=== PATIENT | female | born 1975 | race Hispanic/Latino ===

== ENCOUNTER 2017-12-14 10:29 | Emergency (ER) | payer OTHER ==
[2017-12-14] MEDS ORDERED: KETOROLAC TROMETHAMINE 60 MG/2 ML VIAL ONE (11:09)
== END 2017-12-14 12:38 | disposition home or self-care (01) ==
LOC: EDH 10:29
DX: S43.82XA Sprain of other specified parts of left shoulder girdle, initial encounter (principal); S13.4XXA Sprain of ligaments of cervical spine, initial encounter; V49.49XA Driver injured in collision with other motor vehicles in traffic accident, initial encounter; Y93.89 Activity, other specified; Y92.89 Other specified places as the place of occurrence of the external cause; Y99.8 Other external cause status
CPT/HCPCS: 72040; 73030; 81025; 96372; 99285; J1885

== ENCOUNTER 2019-04-16 18:03 | Emergency (ER) | payer OTHER | END 2019-04-16 19:03 | disposition home or self-care (01) | LOC: EDH 18:03 | DX: K08.89 Other specified disorders of teeth and supporting structures (principal) | CPT/HCPCS: 99281 ==

== ENCOUNTER 2024-10-31 20:00 | Inpatient (IN) | payer SELFPAY ==
[~2024-10-31] VITALS: Ht 154.9 cm; Wt 85.3 kg
--- NOTE | 2024-10-31 20:43 | ERN ---
ED Note History of Present Illness Stated Complaint: ABD PAIN, HEADACHE, FAST HEART BEAT Chief Complaint: Abdominal Pain Time Seen by MD: 20:37 Time Seen by Midlevel: 21:15 Dictation: Ms. Johnson 49-year-old female with history of uterine fibroids/menorrhagia who presented to the emergency department this evening for evaluation of abdominal pain. She states that she woke this morning with left lower quadrant abdominal pain radiating the left flank/low back/LLE and accompanied by nausea, dizziness, headache, and chills. She states throughout the day symptoms worsened; she is fatigued with general weakness, and feels lightheaded. She states she has been suffering from menorrhagia and is currently on her menses. She denies having f ever, shortness of breath, cough, chest pain, vomiting, hematemesis, melena, hematochezia, hematuria, or painful urination PCP: NONE [facility] IDENTITY MANAGEMENT CONSULTANT: NONE Allergies: Coded Allergies: No Known Drug Allergies (Unverified Allergy, Unknown, 04/16/19) Emergency Care GENERAL ACCOUNTING MANAGER: None Past Medical History Past Medical History: Other (UTERINE FIBROIDS, MENORRHAGIA) PSYCH History: no pertinent psych hx Social History: Negative RN Note Reviewed/Agreed w/PFSH: Yes Review of System Dictation REVIEW OF SYSTEMS: CONSTITUTIONAL: Patient denies fevers, sweats and weight changes. Reports chills EYES: Patient denies any visual symptoms. EARS, NOSE, AND THROAT: No difficulties with hearing. No symptoms of rhinitis or sore throat. CARDIOVASCULAR: Patient denies chest pains, palpitations, orthopnea and paroxysmal nocturnal dyspnea. RESPIRATORY: No dyspnea on exertion, no wheezing or cough. GI: No vomiting, diarrhea, constipation, hematochezia or melena. Reports left lower quadrant abdominal pain radiating to the low back. Reports nausea : No urinary hesitancy or dribbling. No nocturia or urinary frequency. No abnormal urethral discharge. Reports menorrhagia. States has history of uterine fibroids. MUSCULOSKELETAL: No myalgias or arthralgias. NEUROLOGIC: No chronic headaches, no seizures. Patient denies numbness, tingling or weakness. Reports acute headache and dizziness. PSYCHIATRIC: Patient denies problems with mood disturbance. No problems with anxiety. ENDOCRINE: No excessive urination or excessive thirst. DERMATOLOGIC: Patient denies any rashes or skin changes. Initial Vital Sign VS Vital Signs Date Time Temp Pulse Resp B/P (MAP) Pulse Ox O2 Delivery O2 Flow Rate FiO2 10/31/24 20:40 99.0 84 20 160/58 97 Room Air Physical Exam Dictation Vital signs: Reviewed. Afebrile Constitutional: No acute distress. Non-toxic appearing. Pleasant Head/Face: Normocephalic, atraumatic. Eyes: Periorbital areas with no swelling, redness, or edema. Lids and lashes are normal. Conjunctival injection is absent. Sclera anicteric. Pupils equal, round, reactive to light. ENT: Pinnas intact and no signs of trauma or erythema. Ear canals clear and no discharge. TMs no erythema. No nasal discharge or bleeding noted. Oropharynx with no exudate, redness, swelling, masses, exudates, or evidence of obstruction. Uvula midline. Mucous membranes moist. Neck: Trachea midline, no masses palpated, and no cervical lymphadenopathy. No swelling. Supple, full range of motion. Chest/Axilla: No tenderness, no crepitus, no paradoxical movement, no retractions. Cardiovascular: Regular rate, regular rhythm, no murmur, no gallops. Symmetric pulses. No peripheral edema. Respiratory: Respirations even and unlabored. Lung sounds clear; no wheezes, rales or rhonchi. Room air SpO2 98% Gastrointestinal: Obese No distention is appreciated. Bowel sounds are normal. No mass or organomegaly . There tenderness RLQ. No rebound. No rigidity. No voluntary or involuntary guarding. No Russ's sign. : + left CVA tenderness. On menses. Neurological: Normal speech, gross motor function intact, gross sensory function intact. No focal weakness/Paresthesia. Musculoskeletal/Extremities: All extremities have full range of motion, no pain or tenderness on palpation. Symmetric pulses. Integumentary: Intact. Skin is pale, warm and dry. Cap refill less than 2 seconds. Results (Laboratory/Radiology) Laboratory/Radiology Laboratory Tests Test 10/31/24 20:51 10/31/24 21:30 Urine Color COLORLESS (YELLOW) Urine Appearance CLEAR (CLEAR) Urine pH 6.5 (5.0-8.0) Urine Specific [place] 1.006 (1.001-1.031) Urine Protein NEGATIVE mg/dL (NEGATIVE) Urine Glucose (UA) NEGATIVE mg/dL (NEGATIVE) Urine Ketones NEGATIVE mg/dL (NEGATIVE) Urine Occult Blood SMALL (NEGATIVE) H Urine Nitrate NEGATIVE (NEGATIVE) Urine Bilirubin NEGATIVE mg/dL (NEGATIVE) Urine Urobilinogen 0.2 mg/dL (0.2-1.0) Urine Leukocyte Esterase 250 Todd/uL (NEGATIVE) H Urine RBC 2-5 /HPF (0-1) H Urine WBC 6-10 /HPF (0-1) H Urine Squamous Epithelial Cells RARE /HPF (0-2) Urine Bacteria None /HPF (None Seen) White Blood Count 7.5 K/uL (4.8-10.8) Red Blood Count 2.58 MIL/uL (4.00-5.50) L Hemoglobin 7.1 g/dL (12.0-16.0) L Hematocrit 24.1 % (36-48) L Mean Corpuscular Volume 93.4 fL (79-99) Mean Corpuscular Hemoglobin 27.5 pg (27.0-33.0) Mean Corpuscular Hemoglobin Concent 29.5 g/dL (32.0-36.0) L Red Cell Distribution Width 20.8 % (11.0-15.5) H Platelet Count 413 K/uL (130-400) H Mean Platelet Volume 9.4 fL (7.5-10.5) Immature Granulocyte % (Auto) 0.3 % (0-1) Neutrophils (%) (Auto) 59.1 % (40.0-77.0) Lymphocytes (%) (Auto) 30.4 % (21.0-51.0) Monocytes (%) (Auto) 7.2 % (3.0-13.0) Eosinophils (%) (Auto) 2.3 % (0.0-8.0) Basophils (%) (Auto) 0.7 % (0.0-5.0) Neutrophils # (Auto) 4.5 K/uL (1.8-7.7) Lymphocytes # (Auto) 2.3 K/uL (1.0-4.8) Monocytes # (Auto) 0.5 K/uL (0.1-1.0) Eosinophils # (Auto) 0.17 K/uL (0.00-0.70) Basophils # (Auto) 0.05 K/uL (0.00-0.20) Absolute Immature Granulocyte (auto 0.02 K/uL (0-1) Nucleated Red Blood Cells 0.0 % (0.0-0.19) Red Blood Cell Morphology See comments Sodium Level 138 mmol/L (136-145) Potassium Level 3.9 mmol/L (3.5-5.1) Chloride Level 102 mmol/L (101-111) Carbon Dioxide Level 30 mmol/L (21-32) Blood Urea Nitrogen 18 mg/dL (7-18) Creatinine 0.8 mg/dL (0.5-1.0) Glomerular Filtration Rate Calc 89 mL/min (>90) Random Glucose 117 mg/dL (70-105) H Total Calcium 8.7 mg/dL (8.5-10.1) Lipase 83 U/L (16-77) H Labs Reviewed?: Yes ED Course ED Course Orders Procedure Category Date Status Time Vital Signs Per CPOE 10/31/24 Transmitted Routine 20:46 Saline Lock Iv CPOE 10/31/24 Transmitted 20:46 Cbc With Differential LAB 10/31/24 Complete 20:46 Lipase LAB 10/31/24 Complete 20:46 Urinalysis Profile LAB 10/31/24 Complete 20:46 Basic Metabolic Panel LAB 10/31/24 Complete 20:46 Culture Urine ROBER 10/31/24 In Process 21:02 Ceftriaxone 1g Vial PHA 10/31/24 Complete (Rocephine 1g Inj) 21:30 Ondansetron 4mg Inj PHA 10/31/24 Complete (Zofran 4mg Inj) 21:30 Hydromorphone 0.5mg PHA 10/31/24 Complete Syg (Dilaudid 0.5mg 21:30 Ct Abdomen/Pelvis W/O CT 10/31/24 Taken Contrast 21:49 Type And Screen BBK 10/31/24 Logged 22:12 Current Medications Medications (Trade) Dose Ordered Sig/Gloria Route PRN Reason Start Time Stop Time Status Last Admin Dose Admin Ceftriaxone Sodium (ROCEphine 1G INJ) 1 gm ONCE ONCE IVPB 10/31/24 21:30 10/31/24 21:31 DC Hydromorphone HCl (DiLAUDid 0.5MG INJ) 0.5 mg ONCE ONCE IVP 10/31/24 21:30 10/31/24 21:31 DC Ondansetron HCl (zoFRAN 4MG INJ) 4 mg ONCE ONCE IVP 10/31/24 21:30 10/31/24 21:31 DC Vital Signs Date Time Temp Pulse Resp B/P (MAP) Pulse Ox O2 Delivery O2 Flow Rate FiO2 10/31/24 20:40 99.0 84 20 160/58 97 Room Air VITAL SIGNS REMAINED STABLE; AFEBRILE WITH ROOM AIR SPO2 97%. SHE HAS RIGHT LOWER QUADRANT PAIN WELL LEFT FLANK PAIN WITH POSITIVE LEFT CVA TENDERNESS. SHE HAS NAUSEA WITHOUT EMESIS. LABORATORY FINDINGS NOTED BELOW. NO ELEVATION OF WBCS. H/H 7.1/24.1, PLATELET COUNT 4 ONE THREE, LIPASE 83, AND GLUCOSE 117. UA IS POSITIVE FOR LEUKOCYTE ESTERASE, BLOOD, AND UWBC 6-10. UCX PENDING. CT ABDOMEN/PELVIS HAS BEEN ORDERED. FINDINGS WERE DISCUSSED WITH HOSPITALIST LEIA JOHNSON WHO ACCEPTS PATIENT FOR GROUP. Medical Decision Making MDM MDM: DIFFERENTIAL DIAGNOSIS: KIDNEY STONE, UTI, DIVERTICULITIS, SYMPTOMATIC ANEMIA RATIONALE: TESTS CONSIDERED AND ORDERED SECONDARY TO SHARED DECISION MAKING INCLUDE: LABS, ECG AND RADIOLOGY PREVIOUS OUTSIDE RECORDS REVIEWED: OLD ER VISITS. RISK OF COMPLICATION AND/OR MORBIDITY OR MORTALITY OF PATIENT MANAGEMENT: NONE MEDICATIONS-PER MEDICATION RECONCILIATION NEED FOR HOSPITALIZATION: PATIENT DOES MEET CRITERIA FOR HOSPITALIZATION. NEED FOR EMERGENCY MAJOR/MINOR SURGERY: NO THERE ARE NO SOCIAL CONCERNS WITH THIS PATIENT. PRESCRIPTION DRUG MANAGEMENT PRESCRIPTIONS WILL INCLUDE SYMPTOMATIC CARE PATIENT'S PRIOR EXTERNAL MEDICAL RECORDS FROM OTHER ER VISITS WERE REVIEWED BY ME INDICATED. PRIOR TESTING AND RESULTS FROM PREVIOUS VISITS WERE REVIEWED. PRIOR TESTS WERE TAKEN INTO ACCOUNT WITH MEDICAL DECISION MAKING AND RESOURCE UTILIZATION, INDEPENDENT HISTORIAN/HISTORIANS WERE USED TO OBTAIN COMPLETE MEDICAL HISTORY. I INDEPENDENTLY INTERPRETED THE TEST THAT WERE PERFORMED, RESULTS WERE REVIEWED BY ME AND CONSIDERED FINDINGS ON RADIOLOGY IF ORDERED. MEDICAL MANAGEMENT AND EXAMINATION INTERPRETATION DISCUSSIONS WERE HAD BY ME WITH OTHER QUALIFIED HEALTHCARE PROFESSIONALS INDICATED FOR THE PATIENT'S CARE. DX & DISP Disposition: Observation Departure Impression: Primary Impression: UTI (urinary tract infection) Additional Impressions: Symptomatic anemia, Menorrhagia Condition: Stable Assign Patient to: Dr. Garrett Hackett Referrals: SELF,REFERRAL (PCP) CESILIA BUSH NP Oct 31, 2024 20:43
[2024-10-31 21:00] LABS: APPEARANCE,URINE CLEAR (CLEAR); BILIRUBIN,URINE NEGATIVE (NEGATIVE); COLOR,URINE COLORLESS (YELLOW); GLUCOSE, URINE (UA) NEGATIVE (NEGATIVE); KETONES,URINE NEGATIVE (NEGATIVE); LEUKOCYTE ESTERASE ,URINE 250 Leu/uL (NEGATIVE); NITRATE,URINE NEGATIVE (NEGATIVE); OCCULT BLOOD,URINE SMALL (NEGATIVE); PH,URINE 6.5 (5.0-8.0); PROTEIN,URINE NEGATIVE (NEGATIVE); UROBILINOGEN,URINE 0.2 mg/dL (0.2-1.0)
[2024-10-31 21:01] LABS: ADD UA MICROSCOPIC YES
[2024-10-31 21:03] LABS: SQUAMOUS EPITHELIAL CELL,UR RARE /HPF (0-2)
[2024-10-31] MEDS: hydroMORPHone 0.5 MG SYG (0.5MG/0.5ML) IVP ONE (21:30)
[2024-10-31 21:44] LABS: BASOPHILS # (AUTO) 0.05 K/uL (0.00-0.20); BASOPHILS % (AUTO) 0.7 % (0.0-5.0); EOSINOPHILS # (AUTO) 0.17 K/uL (0.00-0.70); EOSINOPHILS % (AUTO) 2.3 % (0.0-8.0); HEMATOCRIT 24.1 % (36-48); IMMATURE GRANULOCYTE ABSOLUTE 0.02 K/uL (0-1); LYMPHOCYTES # (AUTO) 2.3 K/uL (1.0-4.8); LYMPHOCYTES % (AUTO) 30.4 % (21.0-51.0); MEAN CORPUSCULAR HEMOGLOBIN 27.5 pg (27.0-33.0); MEAN CORPUSCULAR HGB CONC 29.5 g/dL (32.0-36.0); MEAN CORPUSCULAR VOLUME 93.4 fL (79-99); MONOCYTES # (AUTO) 0.5 K/uL (0.1-1.0); MONOCYTES % (AUTO) 7.2 % (3.0-13.0); NEUTROPHILS # (AUTO) 4.5 K/uL (1.8-7.7); NEUTROPHILS % (AUTO) 59.1 % (40.0-77.0); PLATELET COUNT (AUTO) 413 K/uL (130-400); RED BLOOD CELL COUNT(AUTO) 2.58 MIL/uL (4.00-5.50); RED CELL DISTRIBUTION WIDTH 20.8 % (11.0-15.5); WHITE BLOOD COUNT (AUTO) 7.5 K/uL (4.8-10.8)
[2024-10-31 21:56] LABS: CREATININE 0.8 mg/dL (0.5-1.0); POTASSIUM 3.9 mmol/L (3.5-5.1)
--- NOTE | 2024-10-31 22:21 | HP ---
History of Present Illness Reason for Visit: abdominal pain History of Present Illness Ms. Lang is a 49-year-old female that was seen and examined today on 10/31/2024. Patient is a good historian of personal health Patient states that she came to the emergency department with a chief complaint of abdominal pain. Onset was Thursday10/29/2024. Location is to left lower quadrant. Pain radiates to left lower back. Duration is on and off. Character is described as cramping. Episodes of pain lasts about 1 hour. There was no alleviating factors. There was no aggravating factors. Patient reports associated nausea without any vomiting. Patient also states that she has been having almost daily vaginal bleeding for the last one year. Patient states she has been diagnosed with fibroids and needs to see an OBGYN but she does not have insurance. Today in the emergency department hemoglobin 7.1, hematocrit 24.1, CT of abdomen and pelvis has been performed but results are pending at time of admission. Urinalysis is positive for leukocyte esterase and WBCs 6-10 per high-powered microscopy field. Emergency room physician recommended that patient be admitted with a diagnosis of anemia. Past Medical History ADDITIONAL PAST MEDICAL HISTORY: [Denies] SOCIAL HISTORY: [Negative for smoking, alcohol use, drug use. Patient lives with the mother Noemy Perea. Patient is independent of all her ADLs. Patient denies difficulty paying her bills. Patient has poor access to health care due to lack of health insurance. Patient is currently unemployed. SURGICAL HISTORY: [BTL] Review of Systems General: No Fever, No Chills, No Night Sweats, No Fatigue, No Malaise, No Appetite, No Other HEENT: No Head Aches, No Visual Changes, No Eye Pain, No Ear Pain, No Dysphasia, No Sinus Congestion, No Post Nasal Drip, No Sore Throat, No Other Pulmonary: No Dyspnea, No Cough, No Pleuritic Chest Pain, No Other Cardiovascular: No: Chest Pain, Palpitations, Orthopnea, Paroxysmal Noc. Dyspnea, Edema, Lt Headedness, Other Gastrointestinal: Nausea, Abdominal Pain; No: Vomiting, Diarrhea, Constipation, Melena, Hematochezia, Other Genitourinary: No Dysuria, No Frequency, No Incontinence, No Hematuria, No Retention, No Other Musculoskeletal: No: other, neck pain, shoulder pain, arm pain, back pain, hand pain, leg pain, foot pain Skin: No Urticaria, No Rash, No Other Neurological: No: Weakness, Numbness, Incoordination, Change in speech, Confusion, Seizures, Other Allergies: Coded Allergies: No Known Drug Allergies (Unverified Allergy, Unknown, 04/16/19) Exam Vital Signs Vital Signs Date Time Temp Pulse Resp B/P (MAP) Pulse Ox O2 Delivery O2 Flow Rate FiO2 10/31/24 20:40 99.0 84 20 160/58 97 Room Air General Appearance: Alert, Oriented X3, Cooperative, No acute distress HEENT: Atraumatic, PERRLA, EOMI Respiratory: Clear to auscultation, Normal air movement, NL respiratory effort Cardiovascular: Regular rate, Regular rhythm, Normal S1, Normal S2 Abdominal: Normal bowel sounds, Soft, No tenderness Extremities: No edema Skin: No significant lesion Neuro: Normal speech, Strength at 5/5 X4 ext, Sensation intact, Cranial nerves 3-12 NL Psych/Mental Status: Mental status NL, Mood NL, Thoughts/Content NL Assessment/Plan ASSESSMENT: [ Normocytic anemia, POA Urinary tract infection, POA Abdominal pain, POA Uterine fibroids, POA Menometrorrhagia, POA] PLAN: [ Admit patient to medical floor as inpatient status. Check iron panel, follow up with the results Check serum ferritin, follow up with the results Check LDH, reticulocyte count, peripheral smear, follow up with the results Monitor labs Transfuse packed red blood cells for hemoglobin less than 7 mg/dL Check stool for occult blood, follow up with the results Empiric antibiotic therapy with Rocephin Check urine culture, follow up with the results Follow up with results of CT abdomen and pelvis, consider consulting General surgery Service if indicated. Have patient follow up outpatient with OBGYN of choice as the service not available at this facility. Patient has a longstanding history of fibroids. GI prophylaxis, famotidine DVT prophylaxis, Nickolas's and SCDs avoid anticoagulation at this time due to anemia. ADVANCED CARE PLANNING 1. Which of the following were discussed? Hospice Care - Yes Therapeutic options - Yes Advance Directives - Yes-patient states she does not have any advance directives in place at this time however her mother can make decisions for her if she becomes unable. Other discussions - patient wishes to remain a full code at this time 2. Discussed with who? Patient 3. Voluntary nature of this service was explained to the patient? Yes 4. Amount of time spent - ___ 16 minutes ____ 5. Reviewed by Physician? (if this service was performed by NPP) Yes This document was generated in part using voice recognition software, occasional wrong word or sound alike substitutions may have occurred due to the inherent limitations of voice recognition software. Read the chart carefully and recognize using context, where the substitutions have occurred. Although every effort was made to edit the content, home restoration service supervisor and typing errors may occur ATTESTATION BY PHYSICIAN I have seen and examined the patient. I reviewed the documentation, medical decision making, and treatment plan as noted by the mid-level provider above. I agree with the findings and plan of care. KELSI LANG [facility] Oct 31, 2024 22:21
--- NOTE | 2024-10-31 22:33 | HMCIMG ---
CT ABDOMEN/PELVIS W/O CONTRAST HISTORY: Abdominal pain COMPARISON: None TECHNIQUE: Multiple sequential axial images of the abdomen and pelvis were obtained from the dome of the diaphragm through symphysis pubis. Patient was not given contrast through intravenous route. Oral contrast was not given. FINDINGS: No pleural effusion is seen bilaterally. There is no evidence of parenchymal disease or pulmonary nodule of the visualized lower lungs. Degenerative changes of the thoracolumbar spine are present. The heart is not enlarged. Liver measures 17 cm. Gallbladder is contracted. The liver, spleen, adrenal glands and pancreas are unremarkable. There is no evidence of hydronephrosis bilaterally. No evidence of renal stone is seen. Fecal material is seen in the colon. There are normal size retroperitoneal and mesenteric lymph nodes. No ascites is seen. No CT evidence of acute appendicitis is seen. Pelvic sidewalls are symmetric bilaterally. Uterus is enlarged. Bladder is well distended without wall thickening. IMPRESSION: 1. No acute findings. CT was performed with one or more following dose reduction techniques: automated exposure control, adjustment of the mA and kv according to patient's size, or use of a iterative reconstruction technique.
[2024-10-31 22:52] LABS: RETICULOCYTE % (AUTO) 6.83 % (0.42-2.23)
--- NOTE | 2024-10-31 23:04 | NUR ---
PT CARE ASSUMED AT THIS TIME
[2024-10-31] MEDS: cefTRIAXone 1G VIAL IVPB ONE (23:18)
[2024-10-31 23:21] LABS: % IRON SATURATION 2.9 % (22-44)
[2024-10-31] MEDS: cefTRIAXone 1G VIAL IVPB SCH (23:36)
[2024-10-31] MEDS: ondanSETRON 4MG INJ IVP ONE (23:38)
[2024-10-31] MEDS ORDERED: morPHINE 2 MG SYG IVP PRN (23:45)
[2024-11-01] VITALS (8 sets, daily range): BP systolic 107–160; BP diastolic 52–72; PULSE 61–83; RESP 17–21; TEMP 97.9–99.2; O2SAT 99–100
[2024-11-01] MEDS ORDERED: ondanSETRON 4MG INJ IV PRN
[2024-11-01] MEDS ORDERED: hydrALAZine 20MG/ML VIAL IV PRN
[2024-11-01] MEDS ORDERED: acetaMINOPHEN 325 MG TAB PO PRN
[2024-11-01] MEDS: acetaMINOPHEN 325 MG TAB PO PRN (00:19)
--- NOTE | 2024-11-01 01:43 | NUR ---
PROVIDER KELSI MADE AWARE OF ONSET OF S/S. ORDERS GIVEN AT THIS TIME. REPEAT BEDSIDE LABS TAKEN.
[2024-11-01 02:15] LABS: HEMATOCRIT 22.6 % (36-48)
--- NOTE | 2024-11-01 04:21 | NUR ---
MEDICAL SAFETY DIRECTOR PROVIDER PAGED AT THIS TIME. PENDING CALL BACK.
--- NOTE | 2024-11-01 04:32 | NUR ---
PROVIDER MADE AWARE OF CRITICAL LAB HEMOGLOBIN AT THIS TIME. ORDERS GIVEN.
--- NOTE | 2024-11-01 05:46 | NUR ---
REPORT GIVEN TO JOSE ANGEL ZAYAS AT THIS TIME
--- NOTE | 2024-11-01 05:47 | NUR ---
PER BLOOD BANK TECH BLOOD IS NOT READY AT THIS TIME. PENDING BLOOD TRANSFUSION. TECH FROM LAB WILL CALL RN WHEN BLOOD IS READY.
--- NOTE | 2024-11-01 07:23 | NUR ---
1 UNIT PRBC INITIATED. EDUCATED ON SIGNS AND SYMPTOMS OF BLOOD TRANSFUSION REACTION. VITALS STABLE. TOLERATED WELL.
[2024-11-01] MEDS: FAMOTIDINE 20MG TAB PO SCH (08:33)
[2024-11-01 11:55] LABS: BASOPHILS # (AUTO) 0.03 K/uL (0.00-0.20); BASOPHILS % (AUTO) 0.5 % (0.0-5.0); EOSINOPHILS # (AUTO) 0.08 K/uL (0.00-0.70); EOSINOPHILS % (AUTO) 1.2 % (0.0-8.0); HEMATOCRIT 26.4 % (36-48); IMMATURE GRANULOCYTE ABSOLUTE 0.03 K/uL (0-1); LYMPHOCYTES # (AUTO) 1.3 K/uL (1.0-4.8); LYMPHOCYTES % (AUTO) 19.7 % (21.0-51.0); MEAN CORPUSCULAR HEMOGLOBIN 27.5 pg (27.0-33.0); MEAN CORPUSCULAR HGB CONC 30.3 g/dL (32.0-36.0); MEAN CORPUSCULAR VOLUME 90.7 fL (79-99); MONOCYTES # (AUTO) 0.5 K/uL (0.1-1.0); MONOCYTES % (AUTO) 6.8 % (3.0-13.0); NEUTROPHILS # (AUTO) 4.7 K/uL (1.8-7.7); NEUTROPHILS % (AUTO) 71.3 % (40.0-77.0); PLATELET COUNT (AUTO) 357 K/uL (130-400); RED BLOOD CELL COUNT(AUTO) 2.91 MIL/uL (4.00-5.50); WHITE BLOOD COUNT (AUTO) 6.6 K/uL (4.8-10.8)
[2024-11-01 12:07] LABS: CREATININE 0.7 mg/dL (0.5-1.0); MAGNESIUM 2.1 mg/dL (1.80-2.40); PHOSPHORUS 3.4 mg/dL (2.5-4.9); POTASSIUM 4.1 mmol/L (3.5-5.1)
--- NOTE | 2024-11-01 15:31 | PN ---
[facility] PROGRESS NOTE Date of Service: Nov 01, 2024 Time of Service: 15:14 SUBJECTIVE: Ms. Lau, a 49-year-old female with no significant past medical history presented to the ER with the complaints of intermittent left lower quadrant abdominal pain associated with nausea since Thursday. Patient mentioned about experiencing almost daily vaginal bleeding, with passage of clots since the past year. Patient states that she has been diagnosed with fibroids and was recommended hysterectomy but was not able to proceed further due to lack of insurance. Initial labs hemoglobin 7.1, hematocrit 24.1, urinalysis positive for leukocyte esterase. 11/01/2024 Patient is seen and examined at the bedside. She complains of mild left lower quadrant pain and denies nausea, vomiting. No acute events last night. She has received 1 unit PRBCs earlier this morning. CT abdomen/pelvis r esulted in no acute findings. Labs hemoglobin improved from 7.1-8, iron 12, TIBC 410,% saturation 2.9. REVIEW OF SYSTEMS CONSTITUTIONAL: Denies fevers, chills, or night sweats. No unintentional weight loss reported. NEUROLOGICAL: Denies headache, amaurosis fugax, motor weakness, sensory deficit, vertigo/spinning sensation, gait abnormalities, or tremors. ENT: No hearing loss, otalgia, otorrhea, rhinitis, rhinorrhea, hoarseness, or sore throat. CARDIOVASCULAR: Denies any exertional angina, dyspnea on exertion, orthopnea, paroxysmal nocturnal dyspnea, palpitations, life-threatening arrhythmias, claudication. PULMONARY: Denies any shortness of breath, cough, phlegm/sputum, hemoptysis, pleuritic chest pain. SLEEP: Denies morning headaches, daytime somnolence or napping. Denies difficulty falling asleep, staying asleep, waking from sleep. Denies knowledge of snoring. GASTROINTESTINAL: Mild Left lower quadrant pain Denies any type of dysphagia to either liquids or solids. Denies nausea, vomiting, pyrosis, early satiety, abdominal pain, diarrhea, constipation, or changes in stool consistency or caliber. Denies coffee-ground emesis, hematemesis, hematochezia, or melanotic stools. GENITOURINARY: Denies frequency, urgency, nocturia, hematuria or incontinence (Storage/Irritative symptoms.) Low urinary stream, straining to void, urinary intermittency or hesitancy, splitting of the voiding stream, terminal dribbling. ENDOCRINOLOGIC: Denies polyuria, polydipsia, polyphagia or heat/cold intolerances. HEMATOLOGIC: Denies thrombophilia/previous clots, or coagulopathy/bleeding disorders. ONCOLOGIC: Denies personal history of malignancy. DERMATOLOGIC: Denies rashes or pruritus. PSYCHIATRIC: Denies any suicidal or homicidal ideation. Denies hallucinations. PHYSICAL EXAM GENERAL APPEARANCE: The patient is awake, alert, and oriented, in no acute cardiopulmonary distress. NEUROLOGICAL: Cranial nerves II-XII grossly intact. Motor is 5/5 in bilateral upper and lower extremities proximal to distal. No sensory deficits. HEENT: Face is symmetric. Pupils are equal and reactive. Extraocular movements are intact. NECK: Supple. No JVD. No thyromegaly. No submental, submandibular, pre- /postauricular, occipital or supraclavicular lymphadenopathy. CHEST: Normal chest expansion. No Telemetry. LUNGS: Absence of any rales, rhonchi or any wheezing. CARDIOVASCULAR: Regular. S1 and S2 normal. No appreciable rubs, murmurs or gallops. ABDOMEN: Mild Tenderness in left lower quadrant Soft, nontender, and nondistended. There is no rebound, voluntary guarding, or rigidity. : Deferred. No Thibodeaux. EXTREMITIES: Non-edematous and not cyanotic. No clubbing. Good capillary re fill. SKIN: No skin breakdown. Vital Signs (last 8hr) Date Time Temp Pulse Resp B/P (MAP) Pulse Ox O2 Delivery O2 Flow Rate FiO2 11/01/24 12:12 98.4 61 19 117/72 98 Room Air 11/01/24 08:41 100 Room Air* 0 21 11/01/24 08:16 98.1 75 19 123/63 100 Room Air LABS: Laboratory: Test 11/01/24 11:33 11/01/24 01:51 10/31/24 21:30 10/31/24 20:51 Range/Units White Blood Count 6.6 4.8-10.8 K/uL Red Blood Count 2.91 L 4.00-5.50 MIL/uL Hemoglobin 8.0 L 12.0-16.0 g/dL Hematocrit 26.4 L 36-48 % Mean Corpuscular Volume 90.7 79-99 fL Mean Corpuscular Hemoglobin 27.5 27.0-33.0 pg Mean Corpuscular Hemoglobin Concent 30.3 L 32.0-36.0 g/dL Red Cell Distribution Width 19.0 H 11.0-15.5 % Platelet Count 357 130-400 K/uL Mean Platelet Volume 9.5 7.5-10.5 fL Immature Granulocyte % (Auto) 0.5 0-1 % Neutrophils (%) (Auto) 71.3 40.0-77.0 % Lymphocytes (%) (Auto) 19.7 L 21.0-51.0 % Monocytes (%) (Auto) 6.8 3.0-13.0 % Eosinophils (%) (Auto) 1.2 0.0-8.0 % Basophils (%) (Auto) 0.5 0.0-5.0 % Neutrophils # (Auto) 4.7 1.8-7.7 K/uL Lymphocytes # (Auto) 1.3 1.0-4.8 K/uL Monocytes # (Auto) 0.5 0.1-1.0 K/uL Eosinophils # (Auto) 0.08 0.00-0.70 K/uL Basophils # (Auto) 0.03 0.00-0.20 K/uL Absolute Immature Granulocyte (auto 0.03 0-1 K/uL Nucleated Red Blood Cells 0.0 0.0-0.19 % Sodium Level 138 136-145 mmol/L Potassium Level 4.1 3.5-5.1 mmol/L Chloride Level 104 101-111 mmol/L Carbon Dioxide Level 28 21-32 mmol/L Blood Urea Nitrogen 13 7-18 mg/dL Creatinine 0.7 0.5-1.0 mg/dL Glomerular Filtration Rate Calc 105 >90 mL/min Random Glucose 116 H 70-105 mg/dL Total Calcium 8.4 L 8.5-10.1 mg/dL Phosphorus Level 3.4 2.5-4.9 mg/dL Magnesium Level 2.10 1.80-2.40 mg/dL Stool Occult Blood NEGATIVE NEGATIVE Red Blood Cell Morphology See comments Reticulocyte Count (auto) 6.15793 H 0.42-2.23 % Immature Reticulocyte Fraction 31.20 H 0.18-0.48 % Iron Level 12 L 50-170 mcg/dL Total Iron Binding Capacity 410 250-450 mcg/dL Percent Iron Saturation 2.9 L 22-44 % Lactate Dehydrogenase 149 81-234 U/L Lipase 83 H 16-77 U/L Urine Color COLORLESS YELLOW Urine Appearance CLEAR CLEAR Urine pH 6.5 5.0-8.0 Urine Specific [place] 1.006 1.001-1.031 Urine Protein NEGATIVE NEGATIVE mg/dL Urine Glucose (UA) NEGATIVE NEGATIVE mg/dL Urine Ketones NEGATIVE NEGATIVE mg/dL Urine Occult Blood SMALL H NEGATIVE Urine Nitrate NEGATIVE NEGATIVE Urine Bilirubin NEGATIVE NEGATIVE mg/dL Urine Urobilinogen 0.2 0.2-1.0 mg/dL Urine Leukocyte Esterase 250 H NEGATIVE Todd/uL Urine RBC 2-5 H 0-1 /HPF Urine WBC 6-10 H 0-1 /HPF Urine Squamous Epithelial Cells RARE 0-2 /HPF Urine Bacteria None None Seen /HPF Current Medications Medications (Trade) Dose Ordered Sig/Gloria Route PRN Reason Start Time Stop Time Status Last Admin Dose Admin Acetaminophen (TYLenol 325MG TAB) 650 mg Q4H PRN PO PAIN LEVEL 1 TO 3 11/01/24 00:30 12/01/24 00:29 11/01/24 06:19 650 MG Acetaminophen (TYLenol 325MG TAB) 650 mg Q6H PRN PO TEMPERATURE GREATER THAN 101.5 11/01/24 00:00 12/01/24 00:00 Ceftriaxone Sodium (ROCEphine 1G INJ) 1 gm Q24H IVPB 10/31/24 22:30 11/01/24 11:43 DC 10/31/24 23:36 1 GM Famotidine (Pepcid 20mg Tab) 20 mg DAILY PO 11/01/24 09:00 12/01/24 08:59 11/01/24 08:33 20 MG Hydralazine HCl (APRESOLine 20MG INJ) 10 mg Q6H PRN IV For:SBP above 160;DBP above 90 11/01/24 00:00 12/01/24 00:00 Morphine Sulfate (morPHINE 2MG SYG) 2 mg Q4H PRN IVP SEVERE PAIN (7-10) 10/31/24 23:45 11/07/24 23:44 Ondansetron HCl (zoFRAN 4MG INJ) 4 mg Q6H PRN IV NAUSEA/VOMITING 11/01/24 00:00 12/01/24 00:00 DIAGNOSTICS / RADIOLOGY: PROCEDURE: ABD PEL WO - CT ABDOMEN/PELVIS W/O CONTRAST CT ABDOMEN/PELVIS W/O CONTRAST HISTORY: Abdominal pain COMPARISON: None TECHNIQUE: Multiple sequential axial images of the abdomen and pelvis were obtained from the dome of the diaphragm through symphysis pubis. Patient was not given contrast through intravenous route. Oral contrast was not given. FINDINGS: No pleural effusion is seen bilaterally. There is no evidence of parenchymal disease or pulmonary nodule of the visualized lower lungs. Degenerative changes of the thoracolumbar spine are present. The heart is not enlarged. Liver measures 17 cm. Gallbladder is contracted. The liver, spleen, adrenal glands and pancreas are unremarkable. There is no evidence of hydronephrosis bilaterally. No evidence of renal stone is seen. Fecal material is seen in the colon. There are normal size retroperitoneal and mesenteric lymph nodes. No ascites is seen. No CT evidence of acute appendicitis is seen. Pelvic sidewalls are symmetric bilaterally. Uterus is enlarged. Bladder is well distended without wall thickening. IMPRESSION: 1. No acute findings. ASSESSMENT: Normocytic anemia, POA Iron deficiency, POA Urinary tract infection, POA Left lower quadrant abdominal pain, POA History of Uterine fibroids, POA Chronic Menometrorrhagia, POA] Obesity, POA PLAN: Normocytic anemia, POA and Iron deficiency, POA Hemoglobin after 1 unit PRBC transfusion is 8 We will add iron sulfate 325 mg p.o. daily Follow up on ferritin level results Follow up on peripheral smear results We will repeat H/H levels in the a.m. Stool occult blood test is negative Urinary tract infection, POA We will switch the IV antibiotic from ceftriaxone to Levaquin 750 mg Q 24 H as the patient had history of allergy to ceftriaxone, penicillin [hives, rash] Follow up on urine culture results History of Uterine fibroids, POA and Chronic Menometrorrhagia, POA] We will consult OBGYN for further evaluation We will order pelvic ultrasound Continue GI prophylaxis famotidine and DVT prophylaxis SCDs, not on any ant icoagulation due to anemia Follow up on case management and Social Service consult We will repeat the CBC, BMP levels in the morning. ATTESTATION BY PHYSICIAN I have seen and examined the patient. I reviewed the documentation, medical decision making, and treatment plan as noted by the resident above. I agree with the findings and plan of care. Addy Cotter MD, PRIYANKA MD Mar 4, 2025 15:31
[2024-11-01] MEDS: levoFLOXacin 750 MG/D5W 150ML BAG IV SCH (16:07)
--- NOTE | 2024-11-01 22:08 | HMCIMG ---
US PELVIC NON-OB COMP HISTORY: Vaginal bleeding COMPARISON: None TECHNIQUE: Transabdominal pelvic ultrasound study was performed. FINDINGS: The uterus measures 11 x 6.1 x 9 cm. The right ovary measures 1.9 x 1.5 x 1.6 cm. The left ovary measures 2.3 x 1.4 x 2 cm. Flow is seen in both ovaries. Endometrial thickness is 8 mm. Uterus is heterogeneous. There is right ovarian follicle measuring 14 mm. No free fluid is seen in the cul-de-sac. IMPRESSION: 1. No adnexal mass is seen. Heterogeneous uterus may be related to fibroid uterus.
[2024-11-02 03:31] VITALS: BP 105/51; PULSE 82; RESP 17; TEMP 97.8
[2024-11-02 05:49] LABS: BASOPHILS # (AUTO) 0.03 K/uL (0.00-0.20); BASOPHILS % (AUTO) 0.5 % (0.0-5.0); EOSINOPHILS # (AUTO) 0.16 K/uL (0.00-0.70); EOSINOPHILS % (AUTO) 2.4 % (0.0-8.0); HEMATOCRIT 25.5 % (36-48); IMMATURE GRANULOCYTE ABSOLUTE 0.02 K/uL (0-1); LYMPHOCYTES # (AUTO) 1.8 K/uL (1.0-4.8); LYMPHOCYTES % (AUTO) 26.8 % (21.0-51.0); MEAN CORPUSCULAR HEMOGLOBIN 27.5 pg (27.0-33.0); MEAN CORPUSCULAR HGB CONC 30.6 g/dL (32.0-36.0); MEAN CORPUSCULAR VOLUME 89.8 fL (79-99); MONOCYTES # (AUTO) 0.6 K/uL (0.1-1.0); MONOCYTES % (AUTO) 8.3 % (3.0-13.0); NEUTROPHILS # (AUTO) 4.1 K/uL (1.8-7.7); NEUTROPHILS % (AUTO) 61.7 % (40.0-77.0); PLATELET COUNT (AUTO) 336 K/uL (130-400); RED BLOOD CELL COUNT(AUTO) 2.84 MIL/uL (4.00-5.50); RED CELL DISTRIBUTION WIDTH 18.6 % (11.0-15.5); WHITE BLOOD COUNT (AUTO) 6.7 K/uL (4.8-10.8)
[2024-11-02 06:12] LABS: CREATININE 0.8 mg/dL (0.5-1.0); POTASSIUM 4.4 mmol/L (3.5-5.1)
[2024-11-02 08:17] LABS: ALANINE AMINOTRANSFERASE 24 U/L (12-78); ALBUMIN 2.9 g/dL (3.5-5.0); ASPARTATE AMINOTRANSFERASE 10 U/L (10-37); BILIRUBIN,DIRECT < 0.1 mg/dL (0.0-0.3); BILIRUBIN,TOTAL 0.2 mg/dL (0.2-1.0); TOTAL PROTEIN, SERUM 6.2 g/dL (6.0-8.3)
[2024-11-02 08:22] VITALS: BP 125/69; PULSE 83; RESP 20; TEMP 97.6
[2024-11-02] MEDS: FERROUS SULFATE 325 MG TABLET.DR PO SCH (09:54)
[2024-11-02 11:14] VITALS: BP 126/64; PULSE 86; RESP 18; TEMP 98.3
[2024-11-02] MEDS ORDERED: FERR-72 PO (14:31)
[2024-11-02] MEDS ORDERED: MACR100 PO (14:31)
--- NOTE | 2024-11-02 15:48 | DS ---
Discharge Summary Hospital Course Summary: Ms. Lau, a 49-year-old female with no significant past medical history presented to the ER with the complaints of intermittent left lower quadrant abdominal pain associated with nausea since Thursday. Patient mentioned about experiencing daily vaginal bleeding, with passage of clots since the past year. Patient states that she has been diagnosed with fibroids and was recommended hysterectomy but was not able to proceed further due to lack of insurance. Initial labs hemoglobin 7.1, hematocrit 24.1, urinalysis positive for leukocyte esterase. She has received [address] abdomen/pelvis resulted in no acute findings. Hemoglobin improved from 7.1-8, iron 12, TIBC 410,% saturation 2.9. She was started on Ferrous sulphate 325mg. Pelvic ultrasound revealed right ovarian follicle measuring 14 mm and Heterogeneous uterus may be related to fibroid uterus. The hospital did not have OBGYN on-call. An attempt was made to consult welfare officer 1 on but the request could not proceed further as they were not accepting new consults anymore. Over the course of the stay her symptoms nausea, left lower quadrant abdominal pain has significantly improved. Today the patient is seen and examined at the bedside. She is hemodynamically stable. She states that she feels well and has no other complaints. Labs hemoglobin 7.8. She is able to tolerate oral feeds without any difficulty and is ambulating comfortably. Case management consult and social media marketing specialist consult is obtained and their opinions are taken into consideration for safe discharge plan and available resources in view of lack of insurance. Community resources and low income clinic options are provided. Patient is being discharged home today with a prescription of Macrobid 100 mg b.i.d. 5 days for UTI, ferrous sulfate 325 mg p.o. daily, 30 days. Advised to follow up with a PCP and OBGYN outpatient.The patient acknowledged her understanding of the importance of this. Catholic Priest(s): None Procedure(s): PROCEDURE: ABD PEL WO - CT ABDOMEN/PELVIS W/O CONTRAST CT ABDOMEN/PELVIS W/O CONTRAST HISTORY: Abdominal pain COMPARISON: None TECHNIQUE: Multiple sequential axial images of the abdomen and pelvis were obtained from the dome of the diaphragm through symphysis pubis. Patient was not given contrast through intravenous route. Oral contrast was not given. FINDINGS: No pleural effusion is seen bilaterally. There is no evidence of parenchymal disease or pulmonary nodule of the visualized lower lungs. Degenerative changes of the thoracolumbar spine are present. The heart is not enlarged. Liver measures 17 cm. Gallbladder is contracted. The liver, spleen, adrenal glands and pancreas are unremarkable. There is no evidence of hydronephrosis bilaterally. No evidence of renal stone is seen. Fecal material is seen in the colon. There are normal size retroperitoneal and mesenteric lymph nodes. No ascites is seen. No CT evidence of acute appendicitis is seen. Pelvic sidewalls are symmetric bilaterally. Uterus is enlarged. Bladder is well distended without wall thickening. IMPRESSION: 1. No acute findings. PROCEDURE: PELVCOMP - US PELVIC NON-OB COMP US PELVIC NON-OB COMP HISTORY: Vaginal bleeding COMPARISON: None TECHNIQUE: Transabdominal pelvic ultrasound study was performed. FINDINGS: The uterus measures 11 x 6.1 x 9 cm. The right ovary measures 1.9 x 1.5 x 1.6 cm. The left ovary measures 2.3 x 1.4 x 2 cm. Flow is seen in both ovaries. Endometrial thickness is 8 mm. Uterus is heterogeneous. There is right ovarian follicle measuring 14 mm. No free fluid is seen in the cul-de-sac. IMPRESSION: 1. No adnexal mass is seen. Heterogeneous uterus may be related to fibroid uterus. Assessment/Plan: ASSESSMENT: Normocytic anemia, POA secondary to Chronic Menometrorrhagia Iron deficiency, POA Urinary tract infection, POA , asymptomatic Left lower quadrant abdominal pain, POA History of Uterine fibroids, POA Chronic Menometrorrhagia, POA] Obesity, POA PLAN: ADMISSION DATE : 10/31/2024 DISCHARGE DATE : 11/02/2024 DISPOSITION : Home CONDITION : Stable Catholic Priest(s) : None FOLLOW UP APPOINTMENTS : PROCEDURES : None IMAGING (s) : CT abdomen/pelvis, pelvic ultrasound MICROBIOLOGY : Asymptomatic bacteriuria, urinalysis positive for less than 03848 CFU ACTIVITY : ab pepe HOME MEDICATIONS : None NEW MEDICATIONS : Patient is prescribed iron sulfate 325 mg p.o. daily , 30 days, Macrobid 100 mg b.i.d. 5 days for UTI TEACHING : The patient was instructed to present to the nearest Emergency Department or call 911 should their symptoms return or worsen. Discharge Instructions: Advised to Continue to monitor for symptoms of anemia such as fatigue, dizziness or shortness of breath or any new symptoms. Drink plenty of fluids Take the iron supplements as prescribed Complete the course of Macrobid antibiotic for UTI as directed. Home Medications: Active Scripts Nitrofurantoin/Nitrofuran Mac (Macrobid) 100 Mg Cap, 1 CAP PO BID for 5 Days, #10 CAP 0 Refills Prov:VALERIE LARSON MD 11/02/24 Ferrous Sulfate (Ferrous Sulfate) 325 Mg (65 Mg Iron) Tablet, 1 TAB PO DAILY for 30 Days, #30 TAB 0 Refills Prov:VALERIE LARSON MD 11/02/24 Time spent arranging discharge: 1-30 minutes ATTESTATION BY PHYSICIAN I have seen and examined the patient. I reviewed the documentation, medical decision making, and treatment plan as noted by the resident above. I agree with the findings and plan of care. Addy Cotter MD, PRIYANKA MD Nov 02, 2024 15:48
[2024-11-02 16:40] VITALS: O2SAT 99
--- NOTE | 2024-11-02 17:11 | NUR ---
D/C PLAN CM spoke to patient regarding d/c planning. Patient lives with parents. Reports she is independent with ADL's. Denies having any DME. States parents assist as needed. Patient unisured. CM provided community resources and noted low income clinic options. Patient reports she has been screened by [facility] and assisted with [facility] indigent application. No other needs verbalized. CM also provided [employer] plans application. Addendum: 11/02/24 at 1717 by ISAIAH COTO CM Amended: Links added.
== END 2024-11-02 17:00 | disposition home or self-care (01) | DRG 690 ==
LOC: EDH 20:00 → EDHIP 20:01 → 4DH 11-01 05:18
PROVIDERS: ADMIT Internal Medicine; ATTEND Internal Medicine
PROC: 30233N1 Transfusion of Nonautologous Red Blood Cells into Peripheral Vein, Percutaneous Approach (ICD-10-PCS; principal; 2024-11-01)
DX: N39.0 Urinary tract infection, site not specified (principal); D25.9 Leiomyoma of uterus, unspecified; E66.9 Obesity, unspecified; E61.1 Iron deficiency; N92.1 Excessive and frequent menstruation with irregular cycle; Z59.71 Insufficient health insurance coverage; Z75.3 Unavailability and inaccessibility of health-care facilities; Z56.0 Unemployment, unspecified; Z51.5 Encounter for palliative care; Z59.6 Low income; Z68.35 Body mass index [BMI] 35.0-35.9, adult
CPT/HCPCS: 36415; 74176; 76856; 80048; 80076; 81001; 81025; 82270; 83540; 83550; 83615; 83690; 83735; 84100; 85014; 85018; 85025; 85045; 86850; 86900; 86901; 86923; 87086; G0378; J0696; J1956; J2405; P9016; A4600